=== PATIENT | female | born 2000 | race American Indian/Alaskan Native ===

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

== ENCOUNTER 2019-02-11 21:51 | Emergency (ER) | payer OTHER ==
--- NOTE | 2019-02-11 22:20 | Event Note ---
ED Screening Note Date of service: 02/11/19 Time: 22:18 ED Screening Note: 18 y o female presents with unknown weeks gestation presents to Ed cc of right sided pelvic pain states was in and had a positive test but no pnc yet This initial assessment/diagnostic orders/clinical plan/treatment(s) is/are subject to change based on patients health status, clinical progression and re- assessment by fellow clinical providers in the ED. Further treatment and workup at subsequent clinical providers discretion. Patient/guardian urged not to elope from the ED as their condition may be serious if not clinically assessed and managed. Initial orders include: labs,ua US
[2019-02-11 22:21] VITALS: BP 107/48
[2019-02-11 22:59] LABS: Bacteria,Urine 1+ /HPF (Negative); Bilirubin,Urine NEG (Negative); Blood,Urine NEG (Negative); Color,Urine Yellow (Yellow); Mucus,Urine 1+ /HPF; Protein,Urine <15 mg/dL mg/dL (Negative); Urobilinogen,Urine < 2.0 mg/dL (<2.0)
[2019-02-11 23:10] LABS: Basophils % (Auto) 0.5 % (0.0-1.8); Eosinophils % (Auto) 0.7 % (0.0-4.3); Hematocrit 36.7 % (30.3-42.9); Hemoglobin 12.1 gm/dl (10.1-14.3); Lymphocytes # (Auto) 2.3 K/mm3 (1.2-5.4); Lymphocytes % (Auto) 33.5 % (13.4-35.0); Mean Corpuscular HGB Conc 33 % (30-34); Mean Corpuscular Volume 84 fl (79-97); Monocytes # (Auto) 0.6 K/mm3 (0.0-0.8); Platelet Count 286 K/mm3 (140-440); Red Blood Count 4.38 M/mm3 (3.65-5.03); Red Cell Distribution Width 13.1 % (13.2-15.2)
[2019-02-11 23:27] LABS: BUN/Creatinine Ratio 15; Blood Urea Nitrogen 9 mg/dL (7-17); Calcium 9.6 mg/dL (8.4-10.2); Hemolysis Index 11
--- NOTE | 2019-02-11 23:31 | Ultrasound Report ---
ULTRASOUND OBSTETRIC INDICATION / CLINICAL INFORMATION: pelvic pain. TECHNIQUE: Transabdominal. COMPARISON: None available. FINDINGS: GESTATIONAL SAC: Well-defined oval shape and intrauterine in location. YOLK SAC: No significant abnormality. EMBRYO/FETUS: No significant abnormality. - [place]-Rump Length = 1.12 cm = 7 weeks, 2 day(s). - Heart Rate, beats per minute (if present) = 155 ADNEXA: 1.5 cm cyst right ovary FREE FLUID: None. ADDITIONAL FINDINGS: None. IMPRESSION: 1. Single, living intrauterine with estimated sonographic age of 7 weeks, 2 day(s). Signer Name: Marty Valentin MD Signed: 02/11/2019 11:27 PM Workstation Name: [id number]
--- NOTE | 2019-02-12 01:20 | Emergency Department Report ---
ED Abdominal Pain HPI - General Chief Complaint: Abdominal Pain Stated Complaint: ABD PAIN Time Seen by Provider: 02/12/19 01:03 Source: patient Mode of arrival: Ambulatory Limitations: No Limitations - History of Present Illness Initial Comments: 18 year old -Al[place]ian female presents to the emergency room complaining of abdominal pain on the right side of started all day yesterday. Patient's last menstrual period is unknown. Patient denies any dysuria denies any vaginal bleeding admits to some vaginal discharge is white and brown. Patient reports that she's been off her control pills since October. She has not had an ultrasound done. Has not started care first appointment is in February. Patient admits to positive home test as well as a positive blood serum test 3 weeks ago. Patient reports she from [facility]. Complaint: abdominal pain Onset/Timin -: days(s) Location: RLQ, suprapubic Radiation: none Severity scale (0 -10): 8 Quality: sharp Consistency: intermittent Improves With: nothing Worsens With: nothing - Related Data LMP (females 10-50): Home Medications Medication Instructions Recorded Confirmed Last Taken Pnv No.95/Ferrous Fum/Folic AC 1 each PO DAILY 09/07/17 10/08/17 1 Day Ago [Prenavite Tablet] ~10/07/17 Previous Rx's Medication Instructions Recorded Last Taken Type Ibuprofen [Motrin] 600 mg PO Q8H PRN #30 tablet 10/11/17 Unknown Rx oxyCODONE /ACETAMINOPHEN [Percocet 1 tab PO Q6HR PRN #30 tablet 10/11/17 Unknown Rx 5/325] Acetaminophen/Codeine [Tylenol 1 tab PO Q6H PRN #12 tab 02/10/18 Unknown Rx /Codeine # 3 tab] Ibuprofen [Motrin 600 MG tab] 600 mg PO Q8H PRN #15 tablet 02/10/18 Unknown Rx cephALEXin [Keflex] 250 mg PO Q6HR #40 capsule 02/10/18 Unknown Rx Allergies Allergy/AdvReac Type Severity Reaction Status Date / Time No Known Allergies Allergy Verified 04/23/17 18:29 ED Review of Systems ROS: Stated complaint: ABD PAIN Other details as noted in HPI Comment: All other systems reviewed and negative ED Past Medical Hx - Past Medical History Previous Medical History?: Yes Hx Hypertension: No Hx Diabetes: No Hx Deep Vein Thrombosis: No Hx Renal Disease: No Hx Sickle Cell Disease: No Hx Seizures: No Hx Asthma: No Hx COPD: No Hx HIV: No Additional medical history: heart murmur - Surgical History Past Surgical History?: No - Social History Smoking Status: Never Smoker Substance Use Type: None - Medications Home Medications: Home Medications Medication Instructions Recorded Confirmed Last Taken Type Pnv No.95/Ferrous Fum/Folic AC 1 each PO DAILY 09/07/17 10/08/17 1 Day Ago History [Prenavite Tablet] ~10/07/17 Ibuprofen [Motrin] 600 mg PO Q8H PRN #30 tablet 10/11/17 Unknown Rx oxyCODONE /ACETAMINOPHEN [Percocet 1 tab PO Q6HR PRN #30 tablet 10/11/17 Unknown Rx 5/325] Acetaminophen/Codeine [Tylenol 1 tab PO Q6H PRN #12 tab 02/10/18 Unknown Rx /Codeine # 3 tab] Ibuprofen [Motrin 600 MG tab] 600 mg PO Q8H PRN #15 tablet 02/10/18 Unknown Rx cephALEXin [Keflex] 250 mg PO Q6HR #40 capsule 02/10/18 Unknown Rx ED Physical Exam - General Limitations: No Limitations General appearance: alert, in no apparent distress - Head Head exam: Present: atraumatic, normocephalic - Eye Eye exam: Present: normal appearance - ENT ENT exam: Present: mucous membranes moist - Neck Neck exam: Present: normal inspection - GI/Abdominal GI/Abdominal exam: Present: soft, normal bowel sounds. Absent: distended, tenderness - External exam: Present: normal external exam. Absent: erythema, swelling Bi-manual exam: Absent: cervical motion tendernes, adnexal tenderness - Extremities Exam Extremities exam: Present: normal inspection, full ROM - Back Exam Back exam: Present: normal inspection - Neurological Exam Neurological exam: Present: alert, oriented X3, normal gait - Psychiatric Psychiatric exam: Present: normal affect, normal mood - Skin Skin exam: Present: warm, dry, intact, normal color. Absent: rash ED Course Vital Signs 02/11/19 02/11/19 21:53 22:18 Temperature 99.1 F 99.1 F Pulse Rate 78 85 Respiratory 18 18 Rate Blood Pressure 101/48 107/48 O2 Sat by Pulse 99 99 Oximetry ED Medical Decision Making - Lab Data Result diagrams: 02/11/19 22:30 02/11/19 22:30 - Radiology Data Radiology results: report reviewed Viable intrauterine gestation that 7 weeks 2 days with a heartbeat of 155 - Medical Decision Making 18 year old -Algerian female presents to the emergency room complaining of abdominal pain on the right side of started all day yesterday. Patient's last menstrual period is unknown. Patient denies any dysuria denies any vaginal bleeding admits to some vaginal discharge is white and brown. Patient reports that she's been off her control pills since October. She has not had an ultrasound done. Has not started care first appointment is in February. Patient admits to positive home test as well as a positive blood serum test 3 weeks ago. Patient reports she from [facility]. Critical care attestation.: If time is entered above; I have spent that time in minutes in the direct care of this critically ill patient, excluding procedure time. ED Disposition Clinical Impression: Viable in first trimester, Pelvic pain Disposition: - TO HOME OR SELFCARE Is pt being admited?: No Does the pt Need Aspirin: No Condition: Stable Instructions: Abdominal Pain (ED) Additional Instructions: Wet prep is negative for Trichomonas and bacterial vaginosis and yeast. Ultrasound shows there is a viable 7 weeks and 2 days. I recommend he to take Tylenol as needed for abdominal pain. I recommend 3 to follow-up with an OB provider. Referrals: PRIMARY CARE [Primary Care Provider] - 3-5 Days
== END 2019-02-12 03:00 | disposition home or self-care (01) ==
LOC: ED 21:51
DX: O36.71X0 Maternal care for viable fetus in abdominal pregnancy, first trimester, not applicable or unspecified (principal); O26.891 Other specified pregnancy related conditions, first trimester; R10.2 Pelvic and perineal pain; Z79.1 Long term (current) use of non-steroidal anti-inflammatories (NSAID); Z79.899 Other long term (current) drug therapy; Z3A.01 Less than 8 weeks gestation of pregnancy
CPT/HCPCS: 36415; 76801; 80048; 81001; 84702; 85025; 87210; 87591